=== PATIENT | male | born 1980 | race Caucasian/White ===

== ENCOUNTER 2019-09-25 14:26 | Outpatient (CLI) | payer BC ==
--- NOTE | 2019-09-25 16:05 | Ultrasound Report ---
Reason: LOCALIZED EDEMA Procedure Date: 09/25/2019 Accession Number: [id number] / [id number] Procedure: US - Duplex Ext Veins Left CPT Code: Final Report FULL RESULT: EXAM: LEFT LOWER EXTREMITY VENOUS ULTRASOUND EXAM DATE: 09/25/2019 03:57 PM. CLINICAL HISTORY: Localized edema. COMPARISON: None. TECHNIQUE: Real-time sonographic vascular imaging was performed by the administrative services officer through the lower extremity utilizing both color-flow and Doppler spectral analysis. Multiple phlebotomy services representative static images were saved for review. FINDINGS: Common Femoral Vein (CFV): Normal. CFV-GSV Junction: Normal. Profunda Femoral Vein (PFV): Normal. Femoral Vein (FV) Prox: Normal. Femoral Vein (FV) Mid: Normal. Femoral Vein (FV) Dist: Normal. Popliteal Vein: Normal. Posterior Tibial Veins: Normal. Peroneal Veins: Normal. Contralateral Side CFV: Normal. Other: At the left anterior calf from proximal to the midportion, there is a focal collection of unnamed venous varices which do contain intraluminal thrombus. IMPRESSION: 1. No DVT. 2. In the anterior aspect of the lower leg, numerous unnamed venous collaterals show superficial venous thrombus. RADIA
== END 2019-09-25 14:27 | disposition home or self-care (01) ==
LOC: DI 14:26
PROVIDERS: ATTEND Nurse Practitioner Family
DX: I82.812 Embolism and thrombosis of superficial veins of left lower extremity (principal)

== ENCOUNTER 2021-12-14 11:42 | Outpatient (CLI) | payer BC ==
[2021-12-14 14:50] LABS: CALCIUM 9.7 mg/dL (8.5-10.3); POTASSIUM 4.2 mmol/L (3.5-5.0)
== END 2021-12-14 11:43 | disposition home or self-care (01) ==
LOC: LAB.S 11:42
PROVIDERS: ATTEND Nurse Practitioner Family
DX: R94.4 Abnormal results of kidney function studies (principal)
CPT/HCPCS: 36415; 80048

== ENCOUNTER 2022-09-09 15:27 | Outpatient (CLI) | payer OTHER ==
--- NOTE | 2022-09-09 16:24 | XRAY Report ---
PROCEDURE: Shoulder 3 View RT INDICATIONS: RIGHT SHOULDER JOINT PAIN TECHNIQUE: 3 views of the shoulder were acquired. COMPARISON: None. FINDINGS: Bones: No acute fractures or dislocations. No suspicious bony lesions. Visualized ribs appear inta ct. Mild glenohumeral and acromioclavicular degenerative changes. Soft tissues: No suspicious soft tissue calcifications. IMPRESSION: Mild acromioclavicular and glenohumeral osteoarthrosis. No acute osseous abnormality. If symptoms persist or there is continued clinical concern, further evaluation with MRI or CT may be he lpful. Reviewed by: Nikita Foster MD on 09/09/2022 4:22 PM PDT Approved by: Nikita Foster MD on 09/09/2022 4:22 PM PDT Station ID: [id number]
== END 2022-09-09 15:28 | disposition home or self-care (01) ==
LOC: DI 15:27
PROVIDERS: ATTEND Nurse Practitioner Family
DX: M19.011 Primary osteoarthritis, right shoulder (principal)

== ENCOUNTER 2022-12-07 08:00 | Outpatient (CLI) | payer OTHER ==
--- NOTE | 2022-12-07 11:23 | XRAY Report ---
PROCEDURE: Hand 3 View LT INDICATIONS: LEFT HAND PAIN TECHNIQUE: 3 views of the hand(s) acquired. COMPARISON: None. FINDINGS: Bones: Oblique fracture through the proximal fifth metacarpal shaft. No definite intra-articular ext ension. Soft tissues: No suspicious soft tissue calcifications or masses. Soft tissue edema surrounding th e fracture. IMPRESSION: Oblique fracture through the proximal fifth metacarpal shaft. Reviewed by: Adrian Pickens on 12/07/2022 11:21 AM PDT Approved by: Adrian Pickens on 12/07/2022 11:21 AM PDT Station ID: [id number]
== END 2022-12-07 23:59 | disposition home or self-care (01) ==
LOC: DI.S 08:00
PROVIDERS: ATTEND Physician Assistant
DX: S62.327A Displaced fracture of shaft of fifth metacarpal bone, left hand, initial encounter for closed fracture (principal)